=== PATIENT | female | born 1940 | race Caucasian/White ===

== ENCOUNTER 2021-06-11 14:00 | Day surgery (SDCO) | payer MEDICARE, OTHER ==
[~2021-06-11] VITALS: Ht 162.6 cm; Wt 74.0 kg
[~2021-06-11 14:00] MED LIST: ATIVAN0.5 MG PO; BENTYL10 MG PO; CITRACAL-VIT D1 EAC1 PO; FLEXERIL5 MG PO; FOSAMAX70 MG PO; LEVOTHYROXINE50 MCG PO; MVI PO; NORCO 5-325 TA1 EACH PO; VITAMIN D350 MC2 PO
[2021-06-12 05:57] LABS: BASOPHIL 0.3 % (0-2); EOSINOPHIL 1.8 % (0-7); HGB 10.9 g/dl (12.5-16.0); LYMPHOCYTE 25.4 % (15-48); MCH 28.2 pg (25.0-31.0); MCHC 31.1 g/dL (32.0-36.0); MCV 90.7 fL (78.0-100.0); MONOCYTE 10.5 % (0-12); MPV 10.9 fL (6.0-9.5); NEUTROPHIL 61.9 % (41-80); NRBC 0; PLT 235 K/uL (150-400); RBC 3.86 M/uL (4.20-5.40); RDW 14.7 % (11.5-14.0); WBC 7.1 K/uL (4.0-10.5)
[2021-06-12 06:19] LABS: BILIRUBIN - TOTAL 0.4 mg/dL (0.2-1.0); BUN/CREAT RATIO (CALC) 17.3 RATIO; CREATININE 0.75 mg/dL (0.51-0.95); GLOBULIN (CALCULATION) 3.4 g/dL; POTASSIUM 3.5 mmol/L (3.5-5.1); TOTAL PROTEIN 6.4 g/dL (6.4-8.2)
[2021-06-12] MEDS ORDERED: BENTYL10 MG PO (08:19)
[2021-06-12] MEDS ORDERED: HCTZ12.5 MG PO (08:19)
[2021-06-12] MEDS ORDERED: FOSAMAX70 MG PO (08:20)
[2021-06-12] MEDS ORDERED: LEVOTHYROXINE50 MC1 PO (08:20)
[2021-06-12] MEDS ORDERED: CELEXA10 MG PO (08:21)
--- NOTE | 2021-06-12 14:03 | NUR ---
PT IS SCHEDULED TO DISCHARGE HOME THIS DATE. PT LIVES ALONE, BUT HER DAUGHTER LIVES NEAR BY AND WILL ASSIST HER. PT. REQUESTED [facility]. PT. HAS A CANE.
[2021-06-12] MEDS ORDERED: NORCO 5-325 TA1 EACH PO (14:18)
== END 2021-06-12 17:45 | disposition home health service (06) ==
LOC: FER 14:00 → FMS 20:14
PROVIDERS: Nurse Practitioner; ADMIT Internal Medicine
DX: S42.031A Displaced fracture of lateral end of right clavicle, initial encounter for closed fracture (principal); J93.9 Pneumothorax, unspecified; M81.0 Age-related osteoporosis without current pathological fracture; E03.9 Hypothyroidism, unspecified; K58.9 Irritable bowel syndrome, unspecified; Z98.51 Tubal ligation status; I11.9 Hypertensive heart disease without heart failure; I25.10 Atherosclerotic heart disease of native coronary artery without angina pectoris; Z20.822 Contact with and (suspected) exposure to COVID-19; W18.31XA Fall on same level due to stepping on an object, initial encounter
CPT/HCPCS: 36415; 71045; 71101; 71250; 73030; 80053; 85025; 94010; 97162; 97166; 97530-GP; 97535; G0378; U0002